=== PATIENT | female | born 1950 | race Caucasian/White ===

== ENCOUNTER 2016-10-07 16:11 | Emergency (ER) | payer MEDICARE ==
[~2016-10-07 16:11] MED LIST: ACET500CAP PO; AMB10 PO; B COMPLETE PO; BENTYL10 PO; FIORICET OR; HORMONE PELLETS SC; KLONO1 PO; MULTIPLE VIT PO; PROTONIX PO; VIMOVO PO; VITAMIN D31000 UNIT PO; VOLTAREN1 % TOP; ZOFRAN8 PO
[2016-10-07 17:16] LABS: BASOPHILS 0.3 %; BASOPHILS ABSOLUTE 0.02 10/3/uL (0.0-0.16); EOSINOPHILS 0 %; HEMATOCRIT 38.7 % (36.0-48.0); HEMOGLOBIN 13.9 g/dL (12.0-16.0); IMMATURE GRANULOCYTES 0.6 %; IMMATURE GRANULOCYTES ABSOLUTE 0.05 10/3/uL (0.0-0.11); LYMPHOCYTES 23.9 %; LYMPHOCYTES ABSOLUTE 1.86 10/3/uL (0.67-4.30); MEAN CORPUS HGB CONC 35.9 g/dL (32.0-36.0); MEAN CORPUSCULAR HEMOGLOB 33.3 pg (26.0-34.0); MEAN PLATELET VOLUME 8.6 fL (9.2-13.0); MONOCYTES 7.3 %; MONOCYTES ABSOLUTE 0.57 10/3/uL (0.21-1.20); NEUTROPHILS 67.9 %; NEUTROPHILS ABSOLUTE 5.28 10/3/uL (2.02-8.40); PLATELET COUNT 324 10/3/uL (150-400); RBC DISTRIBUTION WIDTH 12.8 % (12.0-16.0); RED CELL COUNT 4.17 10/6/uL (4.0-5.6)
[2016-10-07 17:18] LABS: ER CBC TAT 0 Hrs 08 Mins; MANUAL DIFF NO %; MEAN CORPUSCULAR VOLUME 92.8 fL (80-100); WHITE BLOOD CELLS 7.8 10/3/uL (4.5-10.5)
[2016-10-07 17:27] LABS: ASCORBIC ACID (UR NOT ORDER) NEG (NEG); BILIRUBIN, URINE NEGATIVE (NEG); KETONE, URINE 80 MG/DL (NEG); LEUKOCYTE ESTERASE(NOT OR SMALL (NEG); NITRITE (URINE) NEG (NEG); WBC (NOT ORDERED) (RFLEX) 41 (0-5)
[2016-10-07 17:31] LABS: ALBUMIN 4.2 G/DL (3.5-5.0); BUN (BLOOD UREA NITROGEN) 11 MG/DL (6-23); CALCIUM, SERUM 9.6 MG/DL (8.5-10.4); CHLORIDE, SERUM 98 MMOL/L (96-112); CREATININE 0.89 MG/DL (0.55-1.02); GFR AFRICAN AMERICAN 78 ML/MIN (>=60); GFR NON AFRICAN AMERICAN 68 ML/MIN (>=60); GLUCOSE, SERUM 97 MG/DL (60-99); SGOT(AST) 29 U/L (5-40); SGPT(ALT) 32 U/L (5-65); SODIUM, SERUM 137 MMOL/L (135-148); TOTAL BILIRUBIN 0.7 MG/DL (0-1.2); TOTAL PROTEIN 8.5 G/DL (6.0-8.5)
[2016-10-07 17:34] LABS: ALKALINE PHOSPHATASE 109 U/L (45-117); CO2 (CARBON DIOXIDE) 19 MMOL/L (24-34); GLOBULIN 4.3 G/DL (2.5-4.1); POTASSIUM, SERUM 3.4 MMOL/L (3.5-5.3)
[2016-10-07 23:25] LABS: INFLUENZA A SCREEN NEGATIVE (NEGATIVE); INFLUENZA B SCREEN NEGATIVE (NEGATIVE)
== END 2016-10-08 00:15 | disposition home or self-care (01) ==
LOC: ER 16:11
PROVIDERS: Emergency Medicine
DX: N39.0 Urinary tract infection, site not specified (principal); E86.0 Dehydration; M79.1 Myalgia; Z95.0 Presence of cardiac pacemaker; Z88.8 Allergy status to other drugs, medicaments and biological substances; Z79.899 Other long term (current) drug therapy
CPT/HCPCS: 80053; 81001; 83690; 85025; 87070; 87086; 87804; 87880; 96361; 96374; 96375; 99284; J1885; J2405